=== PATIENT | female | born 1985 | race Caucasian/White ===

== ENCOUNTER 2019-08-07 06:44 | Emergency (ER) | payer OTHER, MEDICAID ==
[~2019-08-07] VITALS: Ht 149.9 cm; Wt 80.0 kg
[2019-08-07 06:51] VITALS: BP 156/105
[2019-08-07] MEDS ORDERED: AMOX500C2 PO (07:13)
== END 2019-08-07 07:21 | disposition home or self-care (01) ==
LOC: ER 06:45
DX: J02.9 Acute pharyngitis, unspecified (principal)
CPT/HCPCS: 87081; 87880; 99283